=== PATIENT | female | born 1945 | race Caucasian/White ===

== ENCOUNTER 2016-06-29 21:36 | Emergency (ER) | payer MEDICARE ==
[2016-06-29 21:36] VITALS: BMI 35.4
[2016-06-29 22:17] VITALS: BP 163/76; PULSE 77; TEMP 98.1; O2SAT 100
--- NOTE | 2016-06-30 00:01 | C.PDOC ---
History Of Present Illness A 70 year old female presents to the emergency room with complaints of right knee pain that started a few hours before arrival. Patient has a history of a knee injury that will require surgery, but patient not sure what it is. pt wears a knee brace and walks with cane. Patient sts she stood up from a seated position today and pain is worse in knee and makes it difficult for her to walk. pt sts the pain is excruciating. Patient is requesting an X-ray. Patient denies any other pain, weakness, numbness, sensory changes, or any other complaints. no fever or chills. pt seen walking ni fast track area to bathroom and to nurse. Time Seen by Provider: 06/29/16 23:31 Chief Complaint (Nursing): Lower Extremity Problem/Injury History Per: Patient History/Exam Limitations: no limitations Onset/Duration Of Symptoms: Hrs Current Symptoms Are (Timing): Still Present Severity: Mild Recent travel outside of the [place]: No - Knee Description Of Injury: Other (Unknown) Currently Unable To: Other (Ambulate) Past Medical History Reviewed: Historical Data, Nursing Documentation, Vital Signs Vital Signs: Last Vital Signs Temp 98.1 F 06/29/16 22:13 Pulse 77 06/29/16 22:13 Resp 20 06/30/16 00:20 BP 163/76 H 06/29/16 22:13 Pulse Ox 100 06/30/16 00:05 - Medical History PMH: Arthritis, HTN, Hypercholesterolemia - [facility] Procedures CL REDUC DISLOC-SHOULDER (03/09/13) Family History: States: No Known Family Hx - Social History Hx Tobacco Use: No Hx Alcohol Use: No Hx Substance Use: No - Immunization History Hx Tetanus Toxoid Vaccination: No Hx Influenza Vaccination: Yes Hx Pneumococcal Vaccination: Yes Review Of Systems Musculoskeletal: Positive for: Other (Right knee pain) Neurological: Negative for: Weakness, Numbness Physical Exam - Physical Exam Appears: Well, Non-toxic Skin: Normal Color, Warm, Dry Head: Atraumatic, Normacephalic Eye(s): bilateral: Normal Inspection Extremity: Normal ROM, Tenderness (Mild tenderness to distal knee on the left and right side.), No Calf Tenderness, No Deformity, No Swelling, No Other (No redness, swelling, or warmth. Good pulses. Good capillary refill.) Pulses: Left Femoral: Normal, Right Femoral: Normal, Left Dorsalis Pedis: Normal , Right Dorsalis Pedis: Normal Neurological/Psych: Oriented x3, Normal Speech Gait: With Assistance (Walking with cane.) ED Course And Treatment O2 Sat by Pulse Oximetry: 100 Medical Decision Making Medical Decision Making: pt with chronic knee pain with exacerbation of pain today. waking in ed prior to analgesic with cane and knee brace. will tx with toradol and outpatient f/u with ortho Disposition - Disposition Disposition: HOME/ ROUTINE Disposition Time: 00:20 Condition: GOOD Forms: Gen Discharge Inst Togolese - Clinical Impression Clinical Impression: Knee pain - Scribe Statement The provider has reviewed the documentation as recorded by the Scribe Radhames Arora All medical record entries made by the Scribe were at my direction and personally dictated by me. I have reviewed the chart and agree that the record accurately reflects my personal performance of the history, physical exam, medical decision making, and the department course for this patient. I have also personally directed, reviewed, and agree with the discharge instructions and disposition.
[2016-06-30 00:21] VITALS: RESP 20
== END 2016-06-30 00:20 | disposition home or self-care (01) ==
LOC: C.ER 21:36
DX: M25.561 Pain in right knee (principal)
CPT/HCPCS: 96372; 99283; J1885